=== PATIENT | male | born 1960 | race Caucasian/White ===

== ENCOUNTER → 2016-05-14 | Outpatient (CLI) | payer OTHER, MEDICAID ==
[~2016-05-14] MED LIST: ANAPROX DS550 MG PO; ATENOLOL25 MG PO; ATOXIMETIN-B1 CAP PO; B121000 MCG/1 IM; CARAFATE1 G1 PO; CLARITIN10 MG PO; DICLOFENAC POTA50 MG PO; ENDOCET 325 MG-1 TAB PO; FLEXERIL10 MG PO; HYDROCODONE BIT1 T11 PO; KEFLEX500 MG PO; LIDOCAINE5% TP; MOBIC PO; MOTRIN800 MG PO; Motrin,Rufen800 MG PO; NAPROSYN500 MG PO; NEURONTIN300 MG PO; NEXIUM40 MG PO; NORVASC5 MG PO; PATANOL 0.1% 5 M5 ML OPH; PERCOCET 325 MG1 TAB PO; POTASSIUM20 MEQ PO; PREDNISONE10 MG PO; SOMA350 MG; TIZANIDINE HCL4 MG PO; VITAMIN D PO; VITAMIN D2000 IU PO; VITAMIN D50000 I1 PO; ZANAFLEX4 M1 PO
== END | disposition home or self-care (01) ==
LOC: RAD 10:15
DX: R06.02 Shortness of breath (principal)

== ENCOUNTER → 2016-07-02 | Outpatient (CLI) | payer OTHER, MEDICAID ==
[2016-07-02 13:46] LABS: BILIRUBIN 1+ (NEGATIVE); BLOOD NEGATIVE (NEGATIVE); CLARITY CLEAR (CLEAR); COLOR YELLOW (YELLOW); GLUCOSE NEGATIVE (NEGATIVE); KETONE TRACE (NEGATIVE); LEUKO ESTERASE NEGATIVE (NEGATIVE); NITRITE NEGATIVE (NEGATIVE); PH 5.5 (5.0-9.0); PROTEIN TRACE (NEGATIVE); SPECIFIC GRAVITY >= 1.030 (1.005-1.030)
[2016-07-02 14:13] LABS: BACTERIA TRACE
== END | disposition home or self-care (01) ==
LOC: LAB 12:52
PROVIDERS: Internal Medicine
DX: Z01.818 Encounter for other preprocedural examination (principal); R07.89 Other chest pain; Z79.899 Other long term (current) drug therapy

== ENCOUNTER 2016-09-26 18:19 | Emergency (ER) | payer OTHER, MEDICAID ==
[~2016-09-26 18:19] MED LIST changes: +MULTI-VITAMIN1 EACH PO; +PERCOCET 325 MG1 TA7 PO
== END 2016-09-26 19:35 | disposition home or self-care (01) ==
LOC: ED 18:19
DX: M25.511 Pain in right shoulder (principal); I10 Essential (primary) hypertension; M19.90 Unspecified osteoarthritis, unspecified site

== ENCOUNTER → 2016-10-30 | Outpatient (CLI) | payer OTHER, MEDICAID ==
[2016-10-30 11:59] LABS: BASO # 0.1 10*3/uL (0.0-0.1); BASO % 0.8 % (0.0-1.0); EOS # 0.2 10*3/uL (0.0-0.4); EOS % 2.5 % (1.0-4.0); HEMATOCRIT 31.9 % (42.0-52.0); HEMOGLOBIN 9.4 g/dl (14.0-18.0); LYMPH # 1.6 10*3/uL (1.3-4.4); LYMPH % 18.3 % (27.0-41.0); MEAN CELL VOLUME 79.2 fl (80.0-94.0); MEAN CORPUSCULAR HGB 23.3 pg (27.0-31.0); MEAN CORPUSCULAR HGB CONC 29.5 g/dl (33.0-37.0); MEAN PLATELET VOLUME 10.7 fl (9.6-12.3); MONO # 0.9 10*3/uL (0.1-1.0); MONO % 9.9 % (3.0-9.0); NEUT # 5.9 10*3/uL (2.3-7.9); PLATELET COUNT AUTOMATED 343 10*3/uL (130-400); RED BLOOD COUNT 4.03 10*6/uL (4.50-5.90); RED CELL DISTRI WIDTH 16.1 % (0-14.5); WHITE BLOOD COUNT 8.7 10*3/uL (4.8-10.8)
[2016-10-30 12:19] LABS: HEMOGLOBIN A1c 5.9 % (4.8-5.6)
== END | disposition home or self-care (01) ==
LOC: LAB 11:34
PROVIDERS: Orthopaedic Surgery
DX: E11.9 Type 2 diabetes mellitus without complications (principal); D64.9 Anemia, unspecified

== ENCOUNTER 2016-11-13 03:46 | Inpatient (IN) | payer OTHER, MEDICAID ==
[~2016-11-13] VITALS: Ht 180.3 cm; Wt 139.3 kg
[2016-11-13] VITALS (13 sets, daily range): BP systolic 127–155; BP diastolic 61–82
--- NOTE | ~2016-11-13 | PR ---
[place], [place] PROGRESS NOTE NAME: JOSH ALMEIDA UNIT #: [id number] ROOM: 428 DOCTOR: YANNA ISRAEL MD BIRTHDATE: [birth year] DOS: 11/15/2016 SUBJECTIVE: The patient is feeling well. OBJECTIVE: VITAL SIGNS: Blood pressure 140/71, heart rate ranging between 53-61 beats per minute, afebrile. IMPRESSION: 1. Precipitous drop in hemoglobin with acute upper GI bleed and now hemoglobin stable at 9.6. Dr. 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 I will move him to a step-down unit at [facility]. There are no external signs of bleeding and his iron is on hold. 2. Benign essential hypertension with controlled blood pressures with atenolol and amlodipine. 3. Benign prostatic hyperplasia and urinary retention, asymptomatic with Flomax. 4. The patient's aspirin is on hold. YANNA ISRAEL MD CM:PNTRANS [id number] YANNA ISRAEL MD 11/15/16 1534 interface
--- NOTE | ~2016-11-13 | PR ---
[place], [place] PROGRESS NOTE NAME: JOSH ALMEIDA UNIT #: [id number] ROOM: [facility] DOCTOR: YANNA ISRAEL MD BIRTHDATE: [birth year] DOS: 11/14/2016 SUBJECTIVE: The patient is feeling well, no new complaints. OBJECTIVE: GENERAL APPEARANCE: Obesity. VITAL SIGNS: Blood pressure 142/78, heart rate of 62 beats per minute, breathing normally, afebrile. HEENT AND NECK: Exam within normal limits. CARDIOVASCULAR SYSTEM: Heart rate is regular in rate and rhythm. S1 and S2 normally audible. LUNGS: Clear to auscultation. ABDOMEN: Soft, nontender. No obvious organomegaly. Bowel sounds are present. EXTREMITIES: Without significant cyanosis or edema. IMPRESSION: 1. The patient with acute upper GI bleed with large bleeding anastomotic ulcer in the stomach. The patient's hemoglobin has improved to 9.7 with blood transfusion and will be followed. Dr. Gray, the columnist is following him. 2. Precipitous drop in hemoglobin from 12.5 grams to 8.2 at admission, status post EGD and securing of bleeding vessel at the anastomotic ulcer in the stomach, being followed closely by Dr. Gray and the patient is still on Sandostatin infusion to keep him from bleeding anymore. 3. Benign essential hypertension with controlled blood pressures. The patient on treatment. 4. Benign prostatic hyperplasia and urinary retention, asymptomatic with Flomax. 5. Morbid obesity, treated with diet, being followed by Dietary. YANNA ISRAEL MD CM:PNTRANS [id number] YANNA ISRAEL MD 11/15/16 0044 interface
--- NOTE | ~2016-11-13 | WRIGHTHP ---
[place], [place] PATIENT HISTORY AND PHYSICAL EXAM NAME: [facility]IDA [facility] [id number] UNIT #: [id number] ROOM: [facility] DOCTOR: YANNA ISRAEL MD BIRTHDATE: [birth year] DOS: 11/13/2016 HISTORY OF PRESENT ILLNESS: The patient is a 56-year-old gentleman who underwent colonoscopy and EGD by Dr. Gray today and he was found to have a large bleeding anastomotic ulcer on the EGD. Dr. Gray secured the bleeding with epinephrine injection of the bleeding vessel and the bleeding stopped. The patient was started on Sandostatin infusion and Dr. Gray recommended admission to the ICU and close monitoring of the hemoglobin. Now, the patient is asymptomatic and in the ICU. No chest pain, no shortness of breath, no GI or urinary symptoms. The patient says his stools have been black because he has been taking iron, but he has not noticed any blood in the stool recently. REVIEW OF SYSTEMS: LUNGS: No increasing shortness of breath or wheezing. GASTROINTESTINAL: No nausea, vomiting, black colored stools. CARDIOVASCULAR: No chest pains or palpitations. SOCIAL HISTORY: Denies smoking cigarettes, alcohol or drug abuse. FAMILY HISTORY: Noncontributory. MEDICATIONS: The patient takes amlodipine, aspirin, atenolol, multivitamin, Percocet. PAST MEDICAL HISTORY: 1. Bariatric surgery and gastric bypass in 2009. 2. Morbid obesity. 3. Chronic back pains. 4. Benign essential hypertension. 5. BPH and urinary retention. ALLERGIES: No known drug allergies. PHYSICAL EXAMINATION: GENERAL: Alert and oriented x3, morbidly obese. VITAL SIGNS: Blood pressure 153/73, heart rate 61 beats per minute, breathing 16 times per minute, temperature 98.3 degrees Fahrenheit. HEENT AND NECK: Extraocular movements are intact. Sclerae are anicteric. Oral mucosa is moist and clean. No obvious facial weakness. Neck is supple without any lymphadenopathy. No thyromegaly. No JVD. No carotid arterial bruits. LUNGS: Clear to auscultation. No wheezing. No rhonchi. CARDIOVASCULAR SYSTEM: Heart rate is regular in rate and rhythm. S1 and S2 normally audible. No significant murmur or any other abnormal cardiac sounds. ABDOMEN: Soft, nontender. No obvious organomegaly. Bowel sounds are present. No obvious herniation. Morbid obesity. EXTREMITIES: Without significant cyanosis or edema. Warm to touch. CENTRAL NERVOUS SYSTEM: Alert and oriented x3. Cranial nerves II-XII are intact. Speech is normal. The patient is able to move all extremities. Normal muscle strength. Deep tendon reflexes are equal on both sides. Plantars were downgoing. [place], [place] PATIENT HISTORY AND PHYSICAL EXAM NAME: JOSH ALMEIDA UNIT #: [id number] ROOM: [facility] DOCTOR: YANNA ISRAEL MD BIRTHDATE: [birth year] IMPRESSION AND PLAN: 1. The patient with precipitous drop of hemoglobin from 12.5 g to 8.2 apparently from acute upper gastrointestinal bleed from a large anastomotic ulcer found on EGD by Dr. Gray today. Bleeding was secured by injection of the bleeding artery with epinephrine by Dr. Gray. The patient admitted to ICU for close monitoring and is receiving blood as ordered by Dr. Gray and his hemoglobins will be monitored closely along with blood pressures and heart rates. The patient has been having black stools, but he was relating it to iron. The patient had not noticed any red blood in the stools or melena. The patient was started on proton pump inhibitors and Sandostatin by Dr. Gray. 2. Benign essential hypertension to be treated with his home medications of atenolol and amlodipine. 3. Benign prostatic hyperplasia and urinary retention. We will continue Flomax. The patient's aspirin was stopped. YANNA ISRAEL MD CM:HISPHYS:PATIENT HISTORY AND PHYSICAL EXAMINATION 29 16 YANNA ISRAEL MD 11/13/161916 interface
--- NOTE | ~2016-11-13 | O ---
[place], [place] OPERATIVE NOTE NAME: JOSH ALMEIDA UNIT #: [id number] ROOM: [facility] DOCTOR: CHA QUESADA MD BIRTHDATE: [birth year] DOS: PROCEDURE #1: HISTORY OF PRESENT ILLNESS: This is a 56-year-old patient who presented with GI bleed, anemia, drop in H and H, undergoing investigation. ALLERGIES: No known medication. FAMILY HISTORY: Noncontributory. PAST SURGICAL HISTORY: Gastric bypass in 2009, left knee. PAST MEDICAL HISTORY: Morbid obesity, back pain, hypertension, iron deficiency anemia. SOCIAL HISTORY: Stopped smoking and nonalcohol consumer. PROCEDURE: Today's procedure part of investigation is panendoscopy and colonoscopy. PREMEDICATION: Versed and Diprivan. SCOPE: Olympus folding colonoscope 10L video. REPORT: After putting the patient in the left lateral position and after application of lubricant to rectal pouch and digital examination, scope was introduced. Thereafter, under direct visualization, I advanced through the length of colon without difficulty. Diverticulosis scattered was identified. Sessile polypoid lesion hepatic flexure with piecemeal polypectomy removed and ileocecal valve was defined. The patient extubated, tolerated the procedure well. IMPRESSION: Diverticulosis, sessile hepatic flexure polypoid lesion status post piecemeal polypectomy. PLAN AND DISCUSSION: I am going to proceed with panendoscopy. PROCEDURE #2: HISTORY OF PRESENT ILLNESS: The patient has presented with GI bleed, undergoing investigation. PROCEDURE: Today's procedure part of investigation is panendoscopy plus biopsy and photographic series and hemostasis therapy for bleeding visible vessel. PREMEDICATION: Versed and Diprivan. SCOPE: Olympus forward-viewing gastroscope Q10 video. [place], [place] OPERATIVE NOTE NAME: JOSH ALMEIDA UNIT #: [id number] ROOM: [facility] DOCTOR: CHA QUESADA MD BIRTHDATE: [birth year] REPORT: After putting the patient in the left lateral position and after application of lubricant to the scope, the scope was introduced. Thereafter, under direct visualization, I advanced through the length of the esophagus without difficulty. Gastric pouch was entered. Hiatal hernia was seen. Gastric bypass configuration was identified. The large anastomotic site with a bleeding vessel in the corner of the ulcer was visualized. Fresh blood in the stomach noticed. Photographic series was obtained. Hemostasis therapy with epinephrine injection of 2 mL of 1:10,000 epinephrine was undertaken. Resolution clip was applied in bleeding vessel, bleeding has stopped, enteric site within normal limits. Biopsies from margin of the ulcer were removed, ruling out dysplastic cells. The patient extubated, tolerated procedure well. IMPRESSION: Giant anastomotic site ulcer with bleeding vessel, status post hemostasis therapy with epinephrine and Resolution clip. PLAN: Protonix 40 mg IV b.i.d., Carafate 2 grams slurry q.6 hours to be alternated every 3 hours with Gaviscon 15 mL q.i.d. and Sandostatin drip as ordered. Supportive management. CHA QUESDAA MD CM:OPRECORD:OPERATIVE NOTE [id number] CHA QUESADA MD 11/13/16 3755 interface
--- NOTE | ~2016-11-13 | PR ---
[place], [place] PROGRESS NOTE NAME: JOSH ALMEIDA UNIT #: [id number] ROOM: 428 DOCTOR: YANNA ISRAEL MD BIRTHDATE: [birth year] DOS: 11/16/2016 SUBJECTIVE: The patient is feeling good. OBJECTIVE: VITAL SIGNS: Blood pressure 130/68, heart rate 65 beats per minute, breathing 20 times per minute, temperature 98.5 degrees Fahrenheit. GENERAL APPEARANCE: The patient is alert and oriented x 3, in no visible distress. HEENT AND NECK: Exam within normal limits. CARDIOVASCULAR SYSTEM: Heart rate is regular in rate and rhythm. S1 and S2 normally audible. LUNGS: Clear to auscultation. ABDOMEN: Soft, nontender. No obvious organomegaly. Bowel sounds are present. Morbidly obese. EXTREMITIES: Without significant cyanosis or edema. IMPRESSION: 1. The patient with large anastomotic bleeding ulcer. Bleeding was secured with epinephrine injection by Dr. Gray and is being treated with proton pump inhibitor and Carafate and followed closely by Dr. Gray. 2. Acute upper gastrointestinal bleed with precipitous drop in hemoglobin, which is now stable at 10.2 grams of hemoglobin after blood transfusion. 3. Benign essential hypertension. Blood pressure has being monitored and controlled. YANNA ISRAEL MD CM:PNTRANS [phone] YANNA ISRAEL MD 11/16/161857 interface
--- NOTE | ~2016-11-13 | DS ---
[place], [place] DISCHARGE SUMMARY NAME: JOSH ALMEIDA UNIT #: [id number] ROOM: 428 DOCTOR: YANNA ISRAEL MD BIRTHDATE: [birth year] DOS: 11/17/2016 DISCHARGE DIAGNOSES: 1. Large anastomotic bleeding ulcer in the stomach seen by Dr. Gray. 2. Precipitous drop in hemoglobin, hemoglobin stable now, hemoglobin dropped from 12.5 to 8.2 at admission. 3. Benign essential hypertension. 4. History of bariatric surgery and gastric bypass in 2009. 5. Morbid obesity. 6. Chronic back pains. 7. Benign prosthetic hypertrophy and urinary retention, treated. HOSPITAL COURSE: 1. The patient was admitted to ICU, sent over from the operation room where he had EGD performed by Dr. Gray. Dr. Gray found a large bleeding anastomotic ulcer with a bleeding vessel. The bleeding vessel was injected with epinephrine and the patient was started on Sandostatin drip infusion and admitted to the ICU. The patient's hemoglobin was monitored and diet was controlled with Dr. Gray. The patient's hemoglobin appears to have stabilized and if Dr. Gray clears him, he can be discharged to home and followed up as an outpatient within a couple of days of discharge. The patient's hemoglobin will be repeated today prior to discharge, hemoglobin study from yesterday was 10.2. 2. Benign essential hypertension with controlled blood pressures with treatment. 3. Morbid obesity. The patient worked with dietary. 4. BPH and urinary retention, asymptomatic with treatment with Flomax. LABORATORY DATA: Hemoglobin study from today is pending. Hemoglobin from yesterday was 10.2, normal platelets, normal serum electrolytes. DISCHARGE MANAGEMENT: Flomax 0.4 mg daily, amlodipine 5 mg a day, Protonix 40 mg b.i.d., tizanidine 4 mg t.i.d. p.r.n., Carafate 2 grams every 6 hours, oxycodone 10 mg t.i.d. p.r.n. for pain and discomfort. [place], [place] DISCHARGE SUMMARY NAME: JOSH ALMEIDA UNIT #: [id number] ROOM: 428 DOCTOR: YANNA ISRAEL MD BIRTHDATE: [birth year] YANNA ISRAEL MD CM:ROBERT [id number] YANNA ISRAEL MD 11/17/162009 interface
[~2016-11-13 03:46] MED LIST changes: +ASPIRIN81 M1 PO
[2016-11-13] MEDS ORDERED: FLOMAX0.4 MG PO (16:33)
[2016-11-13] MEDS ORDERED: IRON (17:36)
[2016-11-13 18:11] LABS: HEMATOCRIT 28.3 % (42.0-52.0); HEMOGLOBIN 8.2 g/dl (14.0-18.0)
[2016-11-13 18:23] LABS: ALBUMIN 3.2 gm/dl (3.1-4.5); ALKALINE PHOSPHATASE 86 U/L (45-117); BILIRUBIN, TOTAL 0.5 mg/dl (0.2-1.0); BUN 17 mg/dl (7-24); CARBON DIOXIDE 27 mmol/L (21-32); CHLORIDE 108 mmol/L (98-107); EST GLOM FILT AFRICAN AMERICAN > 60 ml/min; GLUCOSE 195 mg/dL (65-99); POTASSIUM 3.8 mmol/L (3.5-5.1); SGOT/AST 8 IU/L (3-35); SGPT/ALT 12 U/L (12-78); SODIUM 142 mmol/L (136-145); TOTAL PROTEIN 6.6 gm/dL (6.4-8.2)
[2016-11-14] VITALS: BP 141/68
[2016-11-14 04:00] VITALS: BP 141/66
[2016-11-14 05:49] LABS: HEMATOCRIT 32.5 % (42.0-52.0); HEMOGLOBIN 9.9 g/dl (14.0-18.0)
[2016-11-14 05:50] LABS: BASO # 0.1 10*3/uL (0.0-0.1); BASO % 1.5 % (0.0-1.0); EOS # 0.2 10*3/uL (0.0-0.4); EOS % 2.7 % (1.0-4.0); HEMATOCRIT 33.5 % (42.0-52.0); HEMOGLOBIN 9.7 g/dl (14.0-18.0); LYMPH % 22.8 % (27.0-41.0); MEAN CELL VOLUME 79.2 fl (80.0-94.0); MEAN CORPUSCULAR HGB 22.9 pg (27.0-31.0); MEAN PLATELET VOLUME 11.9 fl (9.6-12.3); MONO # 0.7 10*3/uL (0.1-1.0); MONO % 7.9 % (3.0-9.0); NEUT # 5.8 10*3/uL (2.3-7.9); NEUT % 64.7 % (47.0-73.0); NUCLEATED RED BLOOD CELL 0.2 % (0.0-0.0); PLATELET COUNT AUTOMATED 301 10*3/uL (130-400); RED BLOOD COUNT 4.23 10*6/uL (4.50-5.90); RED CELL DISTRI WIDTH 16.5 % (0-14.5); WHITE BLOOD COUNT 8.9 10*3/uL (4.8-10.8)
[2016-11-14 05:52] LABS: BUN 14 mg/dl (7-24); CARBON DIOXIDE 26 mmol/L (21-32); CHLORIDE 106 mmol/L (98-107); EST GLOM FILT AFRICAN AMERICAN > 60 ml/min; GLUCOSE 139 mg/dL (65-99); SODIUM 141 mmol/L (136-145)
[2016-11-14 08:00] VITALS: BP 124/70
[2016-11-14 12:00] VITALS: BP 134/72
[2016-11-14 16:00] VITALS: BP 142/78
[2016-11-14 20:00] VITALS: BP 147/80
[2016-11-15] VITALS: BP 156/75
[2016-11-15 04:00] VITALS: BP 162/85
[2016-11-15 06:19] LABS: BASO # 0.1 10*3/uL (0.0-0.1); BASO % 1.4 % (0.0-1.0); EOS # 0.4 10*3/uL (0.0-0.4); EOS % 4.9 % (1.0-4.0); HEMATOCRIT 32.9 % (42.0-52.0); HEMOGLOBIN 9.6 g/dl (14.0-18.0); IG # 0.1 10*3/uL (0.0-0.1); LYMPH # 1.8 10*3/uL (1.3-4.4); LYMPH % 24.8 % (27.0-41.0); MEAN CELL VOLUME 79.3 fl (80.0-94.0); MEAN CORPUSCULAR HGB 23.1 pg (27.0-31.0); MEAN CORPUSCULAR HGB CONC 29.2 g/dl (33.0-37.0); MEAN PLATELET VOLUME 11.6 fl (9.6-12.3); MONO # 0.7 10*3/uL (0.1-1.0); MONO % 9.7 % (3.0-9.0); NEUT # 4.2 10*3/uL (2.3-7.9); NEUT % 58.5 % (47.0-73.0); NUCLEATED RED BLOOD CELL 0.3 % (0.0-0.0); PLATELET COUNT AUTOMATED 297 10*3/uL (130-400); RED BLOOD COUNT 4.15 10*6/uL (4.50-5.90); RED CELL DISTRI WIDTH 16.8 % (0-14.5); WHITE BLOOD COUNT 7.2 10*3/uL (4.8-10.8)
[2016-11-15 06:39] LABS: BUN 12 mg/dl (7-24); CARBON DIOXIDE 29 mmol/L (21-32); CHLORIDE 105 mmol/L (98-107); EST GLOM FILT AFRICAN AMERICAN > 60 ml/min; GLUCOSE 133 mg/dL (65-99); POTASSIUM 3.6 mmol/L (3.5-5.1); SODIUM 143 mmol/L (136-145)
[2016-11-15 08:00] VITALS: BP 161/84
[2016-11-15 12:00] VITALS: BP 140/71
[2016-11-15 16:00] VITALS: BP 149/78
[2016-11-15 20:00] VITALS: BP 158/92
[2016-11-16] VITALS: BP 146/75
[2016-11-16 07:03] LABS: BASO # 0.1 10*3/uL (0.0-0.1); BASO % 1.1 % (0.0-1.0); EOS # 0.4 10*3/uL (0.0-0.4); EOS % 4.8 % (1.0-4.0); HEMATOCRIT 33.7 % (42.0-52.0); HEMOGLOBIN 10.2 g/dl (14.0-18.0); LYMPH # 2.1 10*3/uL (1.3-4.4); LYMPH % 25.6 % (27.0-41.0); MEAN CELL VOLUME 79.7 fl (80.0-94.0); MEAN CORPUSCULAR HGB 24.1 pg (27.0-31.0); MEAN CORPUSCULAR HGB CONC 30.3 g/dl (33.0-37.0); MEAN PLATELET VOLUME 11.2 fl (9.6-12.3); MONO # 0.7 10*3/uL (0.1-1.0); MONO % 8.6 % (3.0-9.0); NEUT # 4.8 10*3/uL (2.3-7.9); NEUT % 59.5 % (47.0-73.0); PLATELET COUNT AUTOMATED 320 10*3/uL (130-400); RED BLOOD COUNT 4.23 10*6/uL (4.50-5.90); RED CELL DISTRI WIDTH 17.3 % (0-14.5)
[2016-11-16 07:25] LABS: BUN 13 mg/dl (7-24); CARBON DIOXIDE 30 mmol/L (21-32); CHLORIDE 104 mmol/L (98-107); EST GLOM FILT AFRICAN AMERICAN > 60 ml/min; GLUCOSE 135 mg/dL (65-99); POTASSIUM 3.6 mmol/L (3.5-5.1); SODIUM 141 mmol/L (136-145)
[2016-11-16 08:00] VITALS: BP 142/80
[2016-11-16 12:00] VITALS: BP 135/71
[2016-11-16 16:00] VITALS: BP 130/68
[2016-11-16 20:00] VITALS: BP 150/77
[2016-11-17] VITALS: BP 144/80
[2016-11-17 08:00] VITALS: BP 156/81
[2016-11-17 12:00] VITALS: BP 146/80
[2016-11-17 16:00] VITALS: BP 145/75
[2016-11-17 16:05] LABS: BASO # 0.1 10*3/uL (0.0-0.1); BASO % 1.2 % (0.0-1.0); EOS # 0.2 10*3/uL (0.0-0.4); EOS % 3.1 % (1.0-4.0); HEMATOCRIT 33.1 % (42.0-52.0); HEMOGLOBIN 9.9 g/dl (14.0-18.0); LYMPH # 1.8 10*3/uL (1.3-4.4); LYMPH % 23.9 % (27.0-41.0); MEAN CELL VOLUME 78.4 fl (80.0-94.0); MEAN CORPUSCULAR HGB 23.5 pg (27.0-31.0); MEAN CORPUSCULAR HGB CONC 29.9 g/dl (33.0-37.0); MEAN PLATELET VOLUME 11.4 fl (9.6-12.3); MONO # 0.7 10*3/uL (0.1-1.0); MONO % 9.2 % (3.0-9.0); NEUT # 4.7 10*3/uL (2.3-7.9); NEUT % 62.3 % (47.0-73.0); PLATELET COUNT AUTOMATED 331 10*3/uL (130-400); RED BLOOD COUNT 4.22 10*6/uL (4.50-5.90); RED CELL DISTRI WIDTH 17.5 % (0-14.5); WHITE BLOOD COUNT 7.5 10*3/uL (4.8-10.8)
[2016-11-17] MEDS ORDERED: OMEPRAZOLE20 M2 PO (16:07)
[2016-11-17] MEDS ORDERED: CARAFATE1 GM PO (16:07)
== END 2016-11-17 17:06 | disposition home or self-care (01) | DRG 378 ==
LOC: SDC 03:46 → 4E 15:51 → ICCU 15:51 → 4E 11-15 14:28
PROVIDERS: Internal Medicine; Internal Medicine Gastroenterology
PROC: 0DB68ZX Excision of Stomach, Via Natural or Artificial Opening Endoscopic, Diagnostic (ICD-10-PCS; principal; 2016-11-13)
PROC: 30233N1 Transfusion of Nonautologous Red Blood Cells into Peripheral Vein, Percutaneous Approach (ICD-10-PCS; principal; 2016-11-13)
PROC: 0DBK8ZZ Excision of Ascending Colon, Via Natural or Artificial Opening Endoscopic (ICD-10-PCS; principal; 2016-11-13)
PROC: 3E0G8GC Introduction of Other Therapeutic Substance into Upper GI, Via Natural or Artificial Opening Endoscopic (ICD-10-PCS; principal; 2016-11-13)
DX: K28.4 Chronic or unspecified gastrojejunal ulcer with hemorrhage (principal); R71.0 Precipitous drop in hematocrit; I10 Essential (primary) hypertension; Z68.41 Body mass index [BMI] 40.0-44.9, adult; E66.01 Morbid (severe) obesity due to excess calories; G89.29 Other chronic pain; M19.90 Unspecified osteoarthritis, unspecified site; K57.90 Diverticulosis of intestine, part unspecified, without perforation or abscess without bleeding; K44.9 Diaphragmatic hernia without obstruction or gangrene; M54.9 Dorsalgia, unspecified; N40.1 Benign prostatic hyperplasia with lower urinary tract symptoms; Z98.84 Bariatric surgery status; Z79.899 Other long term (current) drug therapy; Z87.891 Personal history of nicotine dependence

== ENCOUNTER → 2017-02-08 | Outpatient (CLI) | payer OTHER, MEDICAID ==
[~2017-02-08] MED LIST changes: +CARAFATE1 GM PO; +FERRO-TIME325 MG PO; +FLOMAX0.4 MG PO; +GAVISCON LIQUI355 ML PO; +IRON; +OMEPRAZOLE20 M2 PO
[2017-02-08 11:12] LABS: ALBUMIN 3.4 gm/dl (3.1-4.5); ALKALINE PHOSPHATASE 96 U/L (45-117); BUN 11 mg/dl (7-24); CHLORIDE 108 mmol/L (98-107); CREATININE 0.79 mg/dL (0.70-1.30); POTASSIUM 4.5 mmol/L (3.5-5.1); SGOT/AST 9 IU/L (3-35); SGPT/ALT 19 U/L (12-78); SODIUM 143 mmol/L (136-145)
== END | disposition home or self-care (01) ==
LOC: LAB 10:06
PROVIDERS: Physician Assistant
DX: D64.9 Anemia, unspecified (principal); M19.90 Unspecified osteoarthritis, unspecified site; R73.09 Other abnormal glucose

== ENCOUNTER → 2017-02-17 | Day surgery (SDC) | payer OTHER, MEDICAID ==
[~2017-02-17] VITALS: Ht 180.3 cm; Wt 147.0 kg
--- NOTE | ~2017-02-17 | O ---
[place], [place] OPERATIVE NOTE NAME: JOSH ALMEIDA UNIT #: [id number] ROOM: DOCTOR: CHA QUESADA MD BIRTHDATE: [birth year] DOS: GASTROENDOSCOPIC REPORT INDICATIONS: The patient is a 56-year-old who has presented with giant anastomotic site ulcer, status post gastric bypass. The patient has been treated with double dose sucralfate and Protonix. ALLERGIES: No known medication. FAMILY HISTORY: Unremarkable. PAST SURGICAL HISTORY: Gastric bypass, left knee prosthesis. PAST MEDICAL HISTORY: Hypertension, lower back pain. The patient has stopped taking Aleve. The patient has been on Gaviscon, Protonix and Carafate. SOCIAL HISTORY: Nonsmoker, nonalcohol consumer. PROCEDURE: Todays' procedure part of investigation is panendoscopy plus biopsy. PREMEDICATION: Versed and Diprivan. SCOPE: Olympus forward-viewing gastroscope Q10 video. REPORT: After putting the patient in the left lateral position and after application of lubricant to the scope, scope was introduced. Thereafter, under direct visualization, I advanced through the length of esophagus without difficulty. Gastric pouch was entered so far at the esophagogastric junction. Short segment Cerda esophagus was targeted, biopsied. Gastric pouch was entered. Anastomotic site appears to be benign. There is no evidence of ulceration. The ulcer is entirely healed. Enteric site was inspected. It is patent and there is no obstruction evidence. The patient was gradually extubated, tolerated the procedure well. IMPRESSION: Healed anastomotic ulcer, status post gastric bypass. Short segment Cerda's esophagus, status post biopsies, status post photographic series. PLAN AND DISCUSSION: Continuation with Protonix 40 mg daily, maintenance dose with holding Gaviscon and sucralfate as the supply completes. Antireflux measure with elevation of the head of the bed 6 inches all time. Follow up as an outpatient routinely with you in office, p.r.n. with us visit in GI clinic. Thank you very much indeed for your kind referral. [place], [place] OPERATIVE NOTE NAME: JOSH ALMEIDA UNIT #: [id number] ROOM: DOCTOR: CHA QUESADA MD BIRTHDATE: [birth year] CHA QUESADA MD CM:ADEN:OPERATIVE NOTE 2 7 YANNA QUESADA MD 02/17/17 0957 interface
[2017-02-17 08:00] VITALS: BP 189/94
[2017-02-17 09:00] VITALS: BP 157/85
[2017-02-17 09:15] VITALS: BP 162/84
[2017-02-17 09:30] VITALS: BP 159/72
== END | disposition home or self-care (01) ==
LOC: SDC 02-12 10:15
DX: K29.50 Unspecified chronic gastritis without bleeding (principal); K22.70 Barrett's esophagus without dysplasia; I10 Essential (primary) hypertension; Z98.84 Bariatric surgery status; Z79.899 Other long term (current) drug therapy; E66.01 Morbid (severe) obesity due to excess calories

== ENCOUNTER → 2017-09-01 | Outpatient (CLI) | payer OTHER, MEDICAID | END | disposition home or self-care (01) | LOC: RAD 15:18 | DX: M51.37 Other intervertebral disc degeneration, lumbosacral region (principal); M47.897 Other spondylosis, lumbosacral region ==

== ENCOUNTER 2017-09-11 20:04 | Emergency (ER) | payer OTHER, MEDICAID ==
[~2017-09-11] VITALS: Ht 180.3 cm; Wt 156.5 kg
[2017-09-11] MEDS ORDERED: TRAMADOL HCL50 MG PO (20:14)
[2017-09-11 21:00] LABS: BASO # 0.1 10*3/uL (0.0-0.1); BASO % 0.7 % (0.0-1.0); EOS # 0.2 10*3/uL (0.0-0.4); EOS % 2.7 % (1.0-4.0); HEMATOCRIT 38.6 % (42.0-52.0); HEMOGLOBIN 11.3 g/dl (14.0-18.0); LYMPH # 2.2 10*3/uL (1.3-4.4); LYMPH % 27.1 % (27.0-41.0); MEAN CELL VOLUME 78.3 fl (80.0-94.0); MEAN CORPUSCULAR HGB 22.9 pg (27.0-31.0); MEAN CORPUSCULAR HGB CONC 29.3 g/dl (33.0-37.0); MEAN PLATELET VOLUME 10.3 fl (9.6-12.3); MONO # 0.7 10*3/uL (0.1-1.0); MONO % 8.9 % (3.0-9.0); NEUT % 60.4 % (47.0-73.0); PLATELET COUNT AUTOMATED 290 10*3/uL (130-400); RED BLOOD COUNT 4.93 10*6/uL (4.50-5.90); RED CELL DISTRI WIDTH 17.5 % (0-14.5); WHITE BLOOD COUNT 8.2 10*3/uL (4.8-10.8)
[2017-09-11 21:09] LABS: INTERNATIONAL NORM RATIO 0.9 (2.0-3.5)
[2017-09-11 21:17] LABS: ALBUMIN 3.6 gm/dl (3.1-4.5); ALKALINE PHOSPHATASE 125 U/L (45-117); BUN 11 mg/dl (7-24); CHLORIDE 109 mmol/L (98-107); CREATININE 0.93 mg/dL (0.70-1.30); POTASSIUM 4.3 mmol/L (3.5-5.1); SGOT/AST 15 IU/L (3-35); SGPT/ALT 18 U/L (12-78); SODIUM 143 mmol/L (136-145); TOTAL PROTEIN 7.3 gm/dL (6.4-8.2)
[2017-09-11 21:18] LABS: TROPONIN I < 0.015 ng/ml (<0.045)
[2017-09-11] MEDS ORDERED: CYCLOBENZAPRINE10 MG PO (21:41)
== END 2017-09-11 21:43 | disposition home or self-care (01) ==
LOC: ED 20:04
PROVIDERS: Nurse Practitioner Family
DX: G44.209 Tension-type headache, unspecified, not intractable (principal); M13.88 Other specified arthritis, other site; I10 Essential (primary) hypertension; E66.01 Morbid (severe) obesity due to excess calories; M19.019 Primary osteoarthritis, unspecified shoulder; Z79.899 Other long term (current) drug therapy; Z68.41 Body mass index [BMI] 40.0-44.9, adult

== ENCOUNTER 2017-10-23 19:51 | Emergency (ER) | payer OTHER, MEDICAID ==
[~2017-10-23] VITALS: Wt 150.1 kg
[~2017-10-23 19:51] MED LIST changes: +CYCLOBENZAPRINE10 MG PO; +TRAMADOL HCL50 MG PO
[2017-10-23] MEDS ORDERED: PREDNISONE50 MG PO (20:04)
[2017-10-23] MEDS ORDERED: CYCLOBENZAPRINE10 MG PO (20:04)
[2017-10-23] MEDS ORDERED: NORVASC10 MG PO (20:04)
== END 2017-10-23 20:25 | disposition home or self-care (01) ==
LOC: ED 19:51
DX: R20.2 Paresthesia of skin (principal); M79.602 Pain in left arm; M19.90 Unspecified osteoarthritis, unspecified site; I10 Essential (primary) hypertension; E66.01 Morbid (severe) obesity due to excess calories; Z68.41 Body mass index [BMI] 40.0-44.9, adult; Z98.890 Other specified postprocedural states; Z98.84 Bariatric surgery status; Z79.899 Other long term (current) drug therapy

== ENCOUNTER 2018-07-22 02:06 | Emergency (ER) | payer OTHER, MEDICAID ==
[~2018-07-22] VITALS: Ht 180.3 cm; Wt 157.4 kg
[~2018-07-22 02:06] MED LIST changes: +NORVASC10 MG PO; +PREDNISONE50 MG PO
[2018-07-22 02:53] LABS: BASO # 0.1 10*3/uL (0.0-0.1); BASO % 0.9 % (0.0-1.0); EOS # 0.1 10*3/uL (0.0-0.4); EOS % 1.3 % (1.0-4.0); HEMATOCRIT 44.6 % (42.0-52.0); HEMOGLOBIN 13.7 g/dl (14.0-18.0); LYMPH # 1.1 10*3/uL (1.3-4.4); LYMPH % 13.6 % (27.0-41.0); MEAN CELL VOLUME 85.6 fl (80.0-94.0); MEAN CORPUSCULAR HGB 26.3 pg (27.0-31.0); MEAN CORPUSCULAR HGB CONC 30.7 g/dl (33.0-37.0); MEAN PLATELET VOLUME 10.9 fl (9.6-12.3); MONO # 0.5 10*3/uL (0.1-1.0); MONO % 6.3 % (3.0-9.0); NEUT # 6.2 10*3/uL (2.3-7.9); NEUT % 77.5 % (47.0-73.0); PLATELET COUNT AUTOMATED 302 10*3/uL (130-400); RED BLOOD COUNT 5.21 10*6/uL (4.50-5.90); RED CELL DISTRI WIDTH 16.3 % (0-14.5)
[2018-07-22 03:03] LABS: BILIRUBIN NEGATIVE (NEGATIVE); BLOOD NEGATIVE (NEGATIVE); CLARITY CLEAR (CLEAR); COLOR YELLOW (YELLOW); GLUCOSE NEGATIVE (NEGATIVE); KETONE NEGATIVE (NEGATIVE); LEUKO ESTERASE NEGATIVE (NEGATIVE); NITRITE NEGATIVE (NEGATIVE); SPECIFIC GRAVITY 1.025 (1.005-1.030); UROBILINOGEN 0.2 E.U./dl (0.2-1.0)
[2018-07-22 03:14] LABS: MUCOUS TRACE; WBC 0-2 wbc/hpf (0-5)
[2018-07-22 03:24] LABS: ALBUMIN 3.5 gm/dl (3.1-4.5); ALKALINE PHOSPHATASE 122 U/L (45-117); BUN 14 mg/dl (7-24); CHLORIDE 110 mmol/L (98-107); CREATININE 0.93 mg/dL (0.70-1.30); LIPASE 81 U/L (73-393); POTASSIUM 3.9 mmol/L (3.5-5.1); SGOT/AST 13 IU/L (3-35); SGPT/ALT 18 U/L (12-78); SODIUM 142 mmol/L (136-145); TOTAL PROTEIN 7.6 gm/dL (6.4-8.2)
[2018-07-22] MEDS ORDERED: ZOFRAN4 MG PO (03:57)
[2018-07-22] MEDS ORDERED: FLOMAX0.4 MG PO (03:57)
== END 2018-07-22 04:13 | disposition home or self-care (01) ==
LOC: ED 02:06
PROVIDERS: Emergency Medicine Emergency Medical Services
DX: N13.2 Hydronephrosis with renal and ureteral calculous obstruction (principal); E66.9 Obesity, unspecified; I10 Essential (primary) hypertension; E66.01 Morbid (severe) obesity due to excess calories; Z68.41 Body mass index [BMI] 40.0-44.9, adult; Z79.899 Other long term (current) drug therapy

== ENCOUNTER → 2018-11-07 | Outpatient (CLI) | payer OTHER, MEDICAID ==
[~2018-11-07] MED LIST changes: +ZOFRAN4 MG PO
[2018-11-07 08:52] LABS: BASO % 0.4 % (0.0-1.0); EOS # 0.2 10*3/uL (0.0-0.4); EOS % 2.8 % (1.0-4.0); HEMATOCRIT 40.7 % (42.0-52.0); HEMOGLOBIN 12.5 g/dl (14.0-18.0); LYMPH # 1.4 10*3/uL (1.3-4.4); MEAN CELL VOLUME 88.5 fl (80.0-94.0); MEAN CORPUSCULAR HGB 27.2 pg (27.0-31.0); MEAN CORPUSCULAR HGB CONC 30.7 g/dl (33.0-37.0); MEAN PLATELET VOLUME 11.3 fl (9.6-12.3); MONO # 0.6 10*3/uL (0.1-1.0); MONO % 8.8 % (3.0-9.0); NEUT # 4.5 10*3/uL (2.3-7.9); NEUT % 67.4 % (47.0-73.0); PLATELET COUNT AUTOMATED 242 10*3/uL (130-400); RED CELL DISTRI WIDTH 15.8 % (0-14.5); WHITE BLOOD COUNT 6.7 10*3/uL (4.8-10.8)
[2018-11-07 09:21] LABS: ALBUMIN 3.4 gm/dl (3.1-4.5); BUN 20 mg/dl (7-24); CHLORIDE 110 mmol/L (98-107); CHOLESTEROL 143 mg/dL (<200); CREATININE 0.78 mg/dL (0.70-1.30); POTASSIUM 3.9 mmol/L (3.5-5.1); SGOT/AST 12 IU/L (3-35); SGPT/ALT 15 U/L (12-78); SODIUM 143 mmol/L (136-145); TOTAL PROTEIN 7.1 gm/dL (6.4-8.2); TRIGLYCERIDES 108 mg/dl (<150); VLDL CHOLESTEROL 22 mg/dL (6-40)
[2018-11-07 09:28] LABS: ALKALINE PHOSPHATASE 101 U/L (45-117); FREE T4 1.18 ng/dl (0.76-1.46); HDL CHOLESTEROL 41 mg/dl (40-60); LDL CHOLESTEROL 80 mg/dL (9-159)
[2018-11-07 09:59] LABS: VITAMIN D, 25-HYDROXY 15.2 ng/mL (30-100)
== END | disposition home or self-care (01) ==
LOC: LAB 08:00
PROVIDERS: Internal Medicine
DX: Z12.5 Encounter for screening for malignant neoplasm of prostate (principal); N40.1 Benign prostatic hyperplasia with lower urinary tract symptoms; R53.81 Other malaise; R73.9 Hyperglycemia, unspecified; E55.9 Vitamin D deficiency, unspecified; E03.9 Hypothyroidism, unspecified; I10 Essential (primary) hypertension

== ENCOUNTER 2018-12-24 01:07 | Emergency (ER) | payer OTHER, MEDICAID ==
[~2018-12-24] VITALS: Ht 180.3 cm; Wt 158.8 kg
--- NOTE | ~2018-12-24 | EKG ---
[place], [place] ELECTROCARDIOGRAM REPORT NAME: JOSH ALMEIDA UNIT #: [id number] ROOM: DOCTOR: EPIPHANY DRAFT REPORT BIRTHDATE: [birth year] [facility] Test Date: 2018-12-24 Test Time: 01:28:26 Pat Name: JOSH ALMEIDA Department: Room: Gender: Library Circulation Assistant: : 1960 Requested By: IRAIDA ARCINIEGA PA-C Order Number: [id number] Reading MD: Brandon Amador MD Measurements Intervals [place] Rate: 75 P: 31 CO: 230 QRS: -31 QRSD: 150 T: 104 QT: 475 QTc: 531 Interpretive Statements Sinus rhythm Prolonged CO interval Right bundle branch block Electronically Signed On 12-25-2018 7:46:25 PDT by Brandon Amador MD CM:EKGRPT:ELECTROCARDIOGRAM REPORT [id number] IRAIDA ARCINIEGA PA-C EPIPHANY DRAFT REPORT IRAIDA ARCINIEGA PA-C
[2018-12-24 01:30] LABS: BASO # 0.1 10*3/uL (0.0-0.1); BASO % 0.5 % (0.0-1.0); EOS # 0.1 10*3/uL (0.0-0.4); EOS % 0.9 % (1.0-4.0); HEMATOCRIT 42.6 % (42.0-52.0); HEMOGLOBIN 13.5 g/dl (14.0-18.0); LYMPH # 0.7 10*3/uL (1.3-4.4); LYMPH % 4.8 % (27.0-41.0); MEAN CELL VOLUME 86.2 fl (80.0-94.0); MEAN CORPUSCULAR HGB 27.3 pg (27.0-31.0); MEAN CORPUSCULAR HGB CONC 31.7 g/dl (33.0-37.0); MEAN PLATELET VOLUME 10.5 fl (9.6-12.3); MONO # 0.9 10*3/uL (0.1-1.0); MONO % 6.1 % (3.0-9.0); NEUT # 12.9 10*3/uL (2.3-7.9); NEUT % 87.4 % (47.0-73.0); PLATELET COUNT AUTOMATED 244 10*3/uL (130-400); RED BLOOD COUNT 4.94 10*6/uL (4.50-5.90); RED CELL DISTRI WIDTH 15.2 % (0-14.5); WHITE BLOOD COUNT 14.7 10*3/uL (4.8-10.8)
[2018-12-24 01:41] LABS: INTERNATIONAL NORM RATIO 0.9 (2.0-3.5)
[2018-12-24 01:47] LABS: ALBUMIN 3.5 gm/dl (3.1-4.5); ALKALINE PHOSPHATASE 132 U/L (45-117); BUN 11 mg/dl (7-24); CHLORIDE 110 mmol/L (98-107); CREATININE 0.93 mg/dL (0.70-1.30); POTASSIUM 3.8 mmol/L (3.5-5.1); SGOT/AST 10 IU/L (3-35); SGPT/ALT 17 U/L (12-78); SODIUM 141 mmol/L (136-145); TOTAL PROTEIN 7.1 gm/dL (6.4-8.2)
[2018-12-24 01:49] LABS: TROPONIN I 0.075 ng/ml (<0.045)
== END 2018-12-24 04:02 | disposition home or self-care (01) ==
LOC: ED 01:07
PROVIDERS: Physician Assistant
DX: I10 Essential (primary) hypertension (principal); R79.1 Abnormal coagulation profile; R51 Headache; M54.2 Cervicalgia; E66.01 Morbid (severe) obesity due to excess calories; Z79.899 Other long term (current) drug therapy; Z68.41 Body mass index [BMI] 40.0-44.9, adult

== ENCOUNTER 2019-04-16 18:23 | Emergency (ER) | payer OTHER, MEDICAID ==
[~2019-04-16] VITALS: Ht 180.3 cm; Wt 167.8 kg
[2019-04-16] MEDS ORDERED: KEFLEX500 M1 PO (18:43)
[2019-04-16] MEDS ORDERED: SEPTDS PO (18:43)
== END 2019-04-16 19:53 | disposition home or self-care (01) ==
LOC: ED 18:23
DX: L08.9 Local infection of the skin and subcutaneous tissue, unspecified (principal); R03.0 Elevated blood-pressure reading, without diagnosis of hypertension; I10 Essential (primary) hypertension; E66.01 Morbid (severe) obesity due to excess calories; Z68.41 Body mass index [BMI] 40.0-44.9, adult; Z79.899 Other long term (current) drug therapy

== ENCOUNTER 2019-05-03 10:00 | Inpatient (IN) | payer OTHER, MEDICAID ==
[~2019-05-03] VITALS: Ht 180.3 cm; Wt 167.8 kg
[2019-05-03] VITALS (10 sets, daily range): BP systolic 127–173; BP diastolic 59–88
[~2019-05-03 10:00] MED LIST changes: +KEFLEX500 M1 PO; +SEPTDS PO
[2019-05-03 10:44] LABS: BASO # 0.1 10*3/uL (0.0-0.1); BASO % 0.8 % (0.0-1.0); EOS # 0.2 10*3/uL (0.0-0.4); EOS % 1.7 % (1.0-4.0); HEMATOCRIT 43.9 % (42.0-52.0); HEMOGLOBIN 13.5 g/dl (14.0-18.0); MEAN CELL VOLUME 89.6 fl (80.0-94.0); MEAN CORPUSCULAR HGB 27.6 pg (27.0-31.0); MEAN CORPUSCULAR HGB CONC 30.8 g/dl (33.0-37.0); MEAN PLATELET VOLUME 10.6 fl (9.6-12.3); MONO # 0.6 10*3/uL (0.1-1.0); MONO % 6.4 % (3.0-9.0); NEUT # 7.1 10*3/uL (2.3-7.9); NEUT % 79.7 % (47.0-73.0); PLATELET COUNT AUTOMATED 276 10*3/uL (130-400); RED CELL DISTRI WIDTH 14.8 % (0-14.5); WHITE BLOOD COUNT 8.9 10*3/uL (4.8-10.8)
[2019-05-03 10:55] LABS: ACT PARTIAL THROMBO TIME 23.1 SECONDS (20.0-32.1); INTERNATIONAL NORM RATIO 0.9 (2.0-3.5)
[2019-05-03 10:59] LABS: ALBUMIN 3.6 gm/dl (3.1-4.5); ALKALINE PHOSPHATASE 126 U/L (45-117); BUN 9 mg/dl (7-24); CHLORIDE 111 mmol/L (98-107); CREATININE 0.98 mg/dL (0.70-1.30); POTASSIUM 3.9 mmol/L (3.5-5.1); SGOT/AST 14 IU/L (3-35); SGPT/ALT 20 U/L (12-78); SODIUM 143 mmol/L (136-145); TOTAL PROTEIN 7.5 gm/dL (6.4-8.2)
[2019-05-03] MEDS ORDERED: PERCOCET 7.5-31 EACH PO (15:49)
[2019-05-03] MEDS ORDERED: 'TENORMIN50 MG PO (16:37)
[2019-05-04] VITALS: BP 160/87
[2019-05-04 06:44] LABS: BASO # 0.1 10*3/uL (0.0-0.1); BASO % 0.8 % (0.0-1.0); EOS # 0.3 10*3/uL (0.0-0.4); EOS % 2.9 % (1.0-4.0); HEMATOCRIT 41.1 % (42.0-52.0); HEMOGLOBIN 12.4 g/dl (14.0-18.0); LYMPH # 1.7 10*3/uL (1.3-4.4); LYMPH % 18.6 % (27.0-41.0); MEAN CELL VOLUME 92.6 fl (80.0-94.0); MEAN CORPUSCULAR HGB 27.9 pg (27.0-31.0); MEAN CORPUSCULAR HGB CONC 30.2 g/dl (33.0-37.0); MEAN PLATELET VOLUME 10.6 fl (9.6-12.3); MONO # 0.9 10*3/uL (0.1-1.0); MONO % 9.4 % (3.0-9.0); NEUT # 6.2 10*3/uL (2.3-7.9); NEUT % 68.1 % (47.0-73.0); PLATELET COUNT AUTOMATED 265 10*3/uL (130-400); RED BLOOD COUNT 4.44 10*6/uL (4.50-5.90); RED CELL DISTRI WIDTH 15.4 % (0-14.5); WHITE BLOOD COUNT 9.1 10*3/uL (4.8-10.8)
[2019-05-04 07:22] LABS: CHLORIDE 106 mmol/L (98-107); POTASSIUM 3.8 mmol/L (3.5-5.1); SODIUM 141 mmol/L (136-145)
[2019-05-04 07:31] LABS: ALBUMIN 3.3 gm/dl (3.1-4.5); ALKALINE PHOSPHATASE 118 U/L (45-117); BUN 18 mg/dl (7-24); CREATININE 1.17 mg/dL (0.70-1.30); SGOT/AST 13 IU/L (3-35); SGPT/ALT 19 U/L (12-78); TOTAL PROTEIN 6.9 gm/dL (6.4-8.2)
[2019-05-04 08:00] VITALS: BP 156/85
[2019-05-04 12:00] VITALS: BP 121/75
[2019-05-04 16:00] VITALS: BP 131/64
[2019-05-04 20:00] VITALS: BP 143/65
[2019-05-05] VITALS: BP 143/93
[2019-05-05 08:00] VITALS: BP 98/51
[2019-05-05] MEDS ORDERED: DOK COLACE100 MG PO (08:44)
== END 2019-05-05 09:50 | disposition home health service (06) | DRG 354 ==
LOC: ED 10:00 → 5E 11:43 → EDHOLD 11:43 → 5E 13:29
PROVIDERS: Emergency Medicine; Surgery; ADMIT Internal Medicine
PROC: 0WQF0ZZ Repair Abdominal Wall, Open Approach (ICD-10-PCS; principal; 2019-05-03)
DX: K42.0 Umbilical hernia with obstruction, without gangrene (principal); Z68.43 Body mass index [BMI] 50.0-59.9, adult; E66.01 Morbid (severe) obesity due to excess calories; I10 Essential (primary) hypertension; G89.29 Other chronic pain; M54.5 Low back pain; N40.0 Benign prostatic hyperplasia without lower urinary tract symptoms; Z96.659 Presence of unspecified artificial knee joint; Z98.84 Bariatric surgery status; Z79.899 Other long term (current) drug therapy

== ENCOUNTER → 2019-06-16 | Outpatient (CLI) | payer OTHER, MEDICAID ==
[~2019-06-16] MED LIST changes: +'TENORMIN50 MG PO; +DOK COLACE100 MG PO; +PERCOCET 7.5-31 EACH PO
[2019-06-16 08:46] LABS: BASO # 0.1 10*3/uL (0.0-0.1); EOS # 0.3 10*3/uL (0.0-0.4); EOS % 3.5 % (1.0-4.0); HEMATOCRIT 46.2 % (42.0-52.0); HEMOGLOBIN 13.9 g/dl (14.0-18.0); LYMPH # 1.9 10*3/uL (1.3-4.4); MEAN CELL VOLUME 90.2 fl (80.0-94.0); MEAN CORPUSCULAR HGB 27.1 pg (27.0-31.0); MEAN CORPUSCULAR HGB CONC 30.1 g/dl (33.0-37.0); MEAN PLATELET VOLUME 10.5 fl (9.6-12.3); MONO # 0.7 10*3/uL (0.1-1.0); NEUT # 5.1 10*3/uL (2.3-7.9); PLATELET COUNT AUTOMATED 306 10*3/uL (130-400); RED BLOOD COUNT 5.12 10*6/uL (4.50-5.90); WHITE BLOOD COUNT 8.1 10*3/uL (4.8-10.8)
[2019-06-16 09:16] LABS: ALBUMIN 3.6 gm/dl (3.1-4.5); ALKALINE PHOSPHATASE 135 U/L (45-117); BUN 10 mg/dl (7-24); CHLORIDE 109 mmol/L (98-107); CHOLESTEROL 173 mg/dL (<200); CREATININE 1.01 mg/dL (0.70-1.30); FREE T4 1.04 ng/dl (0.76-1.46); HDL CHOLESTEROL 41 mg/dl (40-60); IRON 78 ug/dL (65-175); LDL CHOLESTEROL 97 mg/dL (9-159); POTASSIUM 4.1 mmol/L (3.5-5.1); SGOT/AST 11 IU/L (3-35); SGPT/ALT 19 U/L (12-78); SODIUM 142 mmol/L (136-145); TOTAL PROTEIN 7.6 gm/dL (6.4-8.2); TRIGLYCERIDES 176 mg/dl (<150); VLDL CHOLESTEROL 35 mg/dL (6-40)
[2019-06-16 09:41] LABS: FERRITIN 18.6 ng/mL (22.0-322.0); VITAMIN D, 25-HYDROXY 13.8 ng/mL (30-100)
== END | disposition home or self-care (01) ==
LOC: LAB 08:24
PROVIDERS: Internal Medicine
DX: Z12.5 Encounter for screening for malignant neoplasm of prostate (principal); I10 Essential (primary) hypertension; E55.9 Vitamin D deficiency, unspecified; D50.8 Other iron deficiency anemias; Z13.1 Encounter for screening for diabetes mellitus; Z00.00 Encounter for general adult medical examination without abnormal findings

== ENCOUNTER 2020-04-02 17:50 | Emergency (ER) | payer OTHER, MEDICAID ==
[~2020-04-02] VITALS: Ht 180.3 cm; Wt 179.2 kg
[2020-04-02 18:20] LABS: BASO # 0.1 10*3/uL (0.0-0.1); BASO % 0.6 % (0.0-1.0); EOS # 0.2 10*3/uL (0.0-0.4); EOS % 1.5 % (1.0-4.0); HEMATOCRIT 41.7 % (42.0-52.0); LYMPH # 1.7 10*3/uL (1.3-4.4); LYMPH % 16.9 % (27.0-41.0); MEAN CELL VOLUME 93.1 fl (80.0-94.0); MEAN CORPUSCULAR HGB 28.8 pg (27.0-31.0); MEAN CORPUSCULAR HGB CONC 30.9 g/dl (33.0-37.0); MEAN PLATELET VOLUME 10.5 fl (9.6-12.3); MONO # 0.8 10*3/uL (0.1-1.0); MONO % 7.8 % (3.0-9.0); NEUT # 7.1 10*3/uL (2.3-7.9); NEUT % 72.9 % (47.0-73.0); PLATELET COUNT AUTOMATED 292 10*3/uL (130-400); RED BLOOD COUNT 4.48 10*6/uL (4.50-5.90); RED CELL DISTRI WIDTH 13.7 % (0-14.5); WHITE BLOOD COUNT 9.7 10*3/uL (4.8-10.8)
[2020-04-02 18:31] LABS: ACT PARTIAL THROMBO TIME 25.4 SECONDS (20.0-32.1)
[2020-04-02 19:11] LABS: ALBUMIN 3.7 gm/dl (3.1-4.5); ALKALINE PHOSPHATASE 108 U/L (45-117); BUN 18 mg/dl (7-24); CHLORIDE 109 mmol/L (98-107); CREATININE 1.53 mg/dL (0.70-1.30); POTASSIUM 4.5 mmol/L (3.5-5.1); SGOT/AST 11 IU/L (3-35); SGPT/ALT 15 U/L (12-78); SODIUM 137 mmol/L (136-145); TOTAL PROTEIN 7.4 gm/dL (6.4-8.2)
[2020-04-02 19:13] LABS: TROPONIN I < 0.015 ng/ml (<0.045)
== END 2020-04-03 01:50 | disposition short-term general hospital (02) ==
LOC: ED 17:50
PROVIDERS: Internal Medicine
DX: R07.9 Chest pain, unspecified (principal); Z79.899 Other long term (current) drug therapy

== ENCOUNTER 2020-05-06 15:43 | Inpatient (IN) | payer OTHER, MEDICAID ==
[~2020-05-06] VITALS: Ht 180.3 cm; Wt 166.2 kg
[2020-05-06 16:17] LABS: BASO % 0.1 % (0.0-1.0); HEMATOCRIT 37.9 % (42.0-52.0); LYMPH # 0.3 10*3/uL (1.3-4.4); LYMPH % 3.3 % (27.0-41.0); MEAN CELL VOLUME 89.2 fl (80.0-94.0); MEAN CORPUSCULAR HGB 28.5 pg (27.0-31.0); MEAN CORPUSCULAR HGB CONC 31.9 g/dl (33.0-37.0); MEAN PLATELET VOLUME 10.7 fl (9.6-12.3); MONO # 0.6 10*3/uL (0.1-1.0); MONO % 5.5 % (3.0-9.0); NEUT % 90.5 % (47.0-73.0); PLATELET COUNT AUTOMATED 234 10*3/uL (130-400); RED BLOOD COUNT 4.25 10*6/uL (4.50-5.90); RED CELL DISTRI WIDTH 14.2 % (0-14.5); WHITE BLOOD COUNT 9.9 10*3/uL (4.8-10.8)
[2020-05-06 16:30] VITALS: BP 118/60
[2020-05-06 16:33] LABS: ALKALINE PHOSPHATASE 80 U/L (45-117); BUN 49 mg/dl (7-24); CHLORIDE 104 mmol/L (98-107); CREATININE 2.03 mg/dL (0.70-1.30); LIPASE 100 U/L (73-393); POTASSIUM 4.1 mmol/L (3.5-5.1); SGOT/AST 19 IU/L (3-35); SGPT/ALT 16 U/L (12-78); SODIUM 134 mmol/L (136-145); TOTAL PROTEIN 7.8 gm/dL (6.4-8.2)
[2020-05-06 16:35] LABS: TROPONIN I < 0.015 ng/ml (<0.045)
[2020-05-06 16:45] LABS: ACT PARTIAL THROMBO TIME 25.9 SECONDS (20.0-32.1)
[2020-05-06 17:17] LABS: PLATELET SUFFICIENCY NORMAL (NORMAL)
[2020-05-07 04:49] VITALS: BP 99/35
[2020-05-07 08:00] VITALS: BP 112/42
[2020-05-07 10:02] VITALS: BP 104/42
[2020-05-07 14:14] VITALS: BP 118/40
[2020-05-07] MEDS ORDERED: NORVASC10 MG PO (14:51)
[2020-05-07] MEDS ORDERED: IRON160 MG PO (14:52)
[2020-05-07] MEDS ORDERED: ZESTORETIC 20-1 EACH PO (14:53)
[2020-05-07 16:00] VITALS: BP 123/72
[2020-05-07 20:00] VITALS: BP 102/72
[2020-05-08] VITALS: BP 129/68
[2020-05-08 04:00] VITALS: BP 124/72
[2020-05-08 08:00] VITALS: BP 134/66
[2020-05-08 08:37] LABS: ALBUMIN 2.6 gm/dl (3.1-4.5); CREATININE 1.73 mg/dL (0.70-1.30); POTASSIUM 4.4 mmol/L (3.5-5.1); TOTAL PROTEIN 6.9 gm/dL (6.4-8.2)
[2020-05-08 08:52] LABS: BASO % 0.1 % (0.0-1.0); HEMATOCRIT 35.2 % (42.0-52.0); LYMPH # 0.5 10*3/uL (1.3-4.4); LYMPH % 3.7 % (27.0-41.0); MEAN CORPUSCULAR HGB 28.6 pg (27.0-31.0); MEAN CORPUSCULAR HGB CONC 31.8 g/dl (33.0-37.0); MONO # 0.8 10*3/uL (0.1-1.0); MONO % 5.3 % (3.0-9.0); NEUT # 12.8 10*3/uL (2.3-7.9); PLATELET COUNT AUTOMATED 282 10*3/uL (130-400); RED BLOOD COUNT 3.91 10*6/uL (4.50-5.90); RED CELL DISTRI WIDTH 14.2 % (0-14.5); WHITE BLOOD COUNT 14.2 10*3/uL (4.8-10.8)
[2020-05-08 12:00] VITALS: BP 133/72
[2020-05-08 13:24] LABS: ABG BASE EXCESS -3.6 mmol/L (-2.0-2.0); ARTERIAL BLOOD GAS PH 7.397 (7.35-7.45)
[2020-05-08 16:00] VITALS: BP 143/75
[2020-05-08 20:00] VITALS: BP 130/67
[2020-05-09] VITALS: BP 118/80
[2020-05-09 04:00] VITALS: BP 124/78
[2020-05-09 05:40] LABS: ALBUMIN 2.6 gm/dl (3.1-4.5); CREATININE 1.47 mg/dL (0.70-1.30); TOTAL PROTEIN 6.6 gm/dL (6.4-8.2)
[2020-05-09 07:23] LABS: BASO % 0.1 % (0.0-1.0); HEMATOCRIT 36.1 % (42.0-52.0); LYMPH # 0.7 10*3/uL (1.3-4.4); LYMPH % 5.6 % (27.0-41.0); MEAN CELL VOLUME 92.3 fl (80.0-94.0); MEAN CORPUSCULAR HGB 28.6 pg (27.0-31.0); MEAN PLATELET VOLUME 11.9 fl (9.6-12.3); MONO # 0.9 10*3/uL (0.1-1.0); MONO % 6.8 % (3.0-9.0); NEUT % 86.5 % (47.0-73.0); PLATELET COUNT AUTOMATED 280 10*3/uL (130-400); RED BLOOD COUNT 3.91 10*6/uL (4.50-5.90); RED CELL DISTRI WIDTH 14.4 % (0-14.5); WHITE BLOOD COUNT 12.7 10*3/uL (4.8-10.8)
[2020-05-09 08:00] VITALS: BP 118/71
[2020-05-09 09:15] LABS: ABG BASE EXCESS -2.8 mmol/L (-2.0-2.0); ARTERIAL BLOOD GAS PH 7.431 (7.35-7.45)
[2020-05-09 12:00] VITALS: BP 125/64
[2020-05-09 16:00] VITALS: BP 138/74
[2020-05-09 20:00] VITALS: BP 140/73
[2020-05-10] VITALS: BP 130/65
[2020-05-10 04:00] VITALS: BP 137/78
[2020-05-10 06:27] LABS: BASO % 0.2 % (0.0-1.0); EOS % 0.1 % (1.0-4.0); HEMATOCRIT 38.3 % (42.0-52.0); LYMPH % 9.7 % (27.0-41.0); MEAN CELL VOLUME 91.2 fl (80.0-94.0); MEAN CORPUSCULAR HGB 28.3 pg (27.0-31.0); MEAN CORPUSCULAR HGB CONC 31.1 g/dl (33.0-37.0); MEAN PLATELET VOLUME 11.5 fl (9.6-12.3); MONO # 0.9 10*3/uL (0.1-1.0); NEUT # 8.5 10*3/uL (2.3-7.9); NEUT % 79.9 % (47.0-73.0); PLATELET COUNT AUTOMATED 355 10*3/uL (130-400); RED CELL DISTRI WIDTH 14.3 % (0-14.5); WHITE BLOOD COUNT 10.6 10*3/uL (4.8-10.8)
[2020-05-10 06:53] LABS: ALBUMIN 2.8 gm/dl (3.1-4.5); ALKALINE PHOSPHATASE 69 U/L (45-117); BUN 39 mg/dl (7-24); CHLORIDE 107 mmol/L (98-107); LDH 220 U/L (87-241); POTASSIUM 3.7 mmol/L (3.5-5.1); SGOT/AST 9 IU/L (3-35); SGPT/ALT 12 U/L (12-78); SODIUM 138 mmol/L (136-145)
[2020-05-10 06:56] LABS: CPK 34 U/L (39-308)
[2020-05-10 08:00] VITALS: BP 141/74
[2020-05-10 12:00] VITALS: BP 116/57
[2020-05-10 16:00] VITALS: BP 130/71
[2020-05-10 20:00] VITALS: BP 131/62
[2020-05-11] VITALS: BP 130/75
[2020-05-11 06:22] LABS: MEAN CELL VOLUME 90.5 fl (80.0-94.0); MEAN CORPUSCULAR HGB 28.1 pg (27.0-31.0); MEAN CORPUSCULAR HGB CONC 31.1 g/dl (33.0-37.0); NUCLEATED RED BLOOD CELL 0.2 % (0.0-0.0); PLATELET COUNT AUTOMATED 361 10*3/uL (130-400); RED BLOOD COUNT 4.09 10*6/uL (4.50-5.90); RED CELL DISTRI WIDTH 14.4 % (0-14.5); WHITE BLOOD COUNT 11.4 10*3/uL (4.8-10.8)
[2020-05-11 06:46] LABS: ALBUMIN 2.6 gm/dl (3.1-4.5); BUN 33 mg/dl (7-24); CHLORIDE 110 mmol/L (98-107); LDH 200 U/L (87-241); POTASSIUM 3.9 mmol/L (3.5-5.1); SGOT/AST 13 IU/L (3-35); SGPT/ALT 16 U/L (12-78); SODIUM 142 mmol/L (136-145); TOTAL PROTEIN 6.6 gm/dL (6.4-8.2)
[2020-05-11 06:47] LABS: ALKALINE PHOSPHATASE 62 U/L (45-117); CPK 37 U/L (39-308)
[2020-05-11 06:58] LABS: PLATELET SUFFICIENCY NORMAL (NORMAL); TOTAL CELLS COUNTED 100 #CELLS
[2020-05-11 08:00] VITALS: BP 134/49
[2020-05-11 12:00] VITALS: BP 110/62
[2020-05-11 16:00] VITALS: BP 130/51
[2020-05-11 20:00] VITALS: BP 140/48
[2020-05-12] VITALS: BP 143/54
[2020-05-12 06:16] LABS: HEMATOCRIT 36.1 % (42.0-52.0); MEAN CELL VOLUME 92.3 fl (80.0-94.0); MEAN CORPUSCULAR HGB 28.4 pg (27.0-31.0); MEAN CORPUSCULAR HGB CONC 30.7 g/dl (33.0-37.0); MEAN PLATELET VOLUME 11.3 fl (9.6-12.3); NUCLEATED RED BLOOD CELL 0.2 % (0.0-0.0); PLATELET COUNT AUTOMATED 379 10*3/uL (130-400); RED BLOOD COUNT 3.91 10*6/uL (4.50-5.90); RED CELL DISTRI WIDTH 14.3 % (0-14.5); WHITE BLOOD COUNT 11.7 10*3/uL (4.8-10.8)
[2020-05-12 06:24] LABS: ALBUMIN 2.5 gm/dl (3.1-4.5); BUN 30 mg/dl (7-24); CHLORIDE 112 mmol/L (98-107); CREATININE 1.18 mg/dL (0.70-1.30); POTASSIUM 3.7 mmol/L (3.5-5.1); SGOT/AST 23 IU/L (3-35); SGPT/ALT 26 U/L (12-78); SODIUM 144 mmol/L (136-145); TOTAL PROTEIN 6.3 gm/dL (6.4-8.2)
[2020-05-12 06:26] LABS: ALKALINE PHOSPHATASE 61 U/L (45-117); LDH 245 U/L (87-241)
[2020-05-12 06:27] LABS: CPK 26 U/L (39-308)
[2020-05-12 07:50] LABS: PLATELET SUFFICIENCY NORMAL (NORMAL); TOTAL CELLS COUNTED 100 #CELLS
[2020-05-12] MEDS ORDERED: DECADRON6 M1 PO (07:58)
[2020-05-12] MEDS ORDERED: Lovenox60 MG/0.6 PO (07:58)
[2020-05-12 08:00] VITALS: BP 139/53
== END 2020-05-12 17:03 | disposition home health service (06) | DRG 177 ==
LOC: ED 15:43 → EDHOLD 18:17 → ICCU 18:17 → 4E 05-11 06:40
PROVIDERS: Emergency Medicine; Internal Medicine Critical Care Medicine; ADMIT Internal Medicine; ATTEND Internal Medicine
PROC: XW033E5 Introduction of Remdesivir Anti-infective into Peripheral Vein, Percutaneous Approach, New Technology Group 5 (ICD-10-PCS; principal; 2020-05-08)
DX: U07.1 COVID-19 (principal); J12.81 Pneumonia due to SARS-associated coronavirus; J96.01 Acute respiratory failure with hypoxia; N17.0 Acute kidney failure with tubular necrosis; D68.59 Other primary thrombophilia; K92.2 Gastrointestinal hemorrhage, unspecified; Z68.43 Body mass index [BMI] 50.0-59.9, adult; Z96.659 Presence of unspecified artificial knee joint; E86.0 Dehydration; E66.01 Morbid (severe) obesity due to excess calories; I10 Essential (primary) hypertension; M54.5 Low back pain; I95.9 Hypotension, unspecified; R62.7 Adult failure to thrive; N20.0 Calculus of kidney; D72.810 Lymphocytopenia; I51.7 Cardiomegaly; Z79.891 Long term (current) use of opiate analgesic; Z79.899 Other long term (current) drug therapy